=== PATIENT | male | born 1960 | race Caucasian/White ===

== ENCOUNTER 2018-09-18 16:53 | Emergency (ER) | payer OTHER ==
[~2018-09-18] VITALS: Ht 177.8 cm; Wt 93.8 kg
[~2018-09-18 16:53] MED LIST: ADVIL200 MG PO; AIRBORNE EFFER1 EACH PO; COLCRYS0.6 MG PO; MONTELUKAST SOD10 MG PO; VENTOLIN HFA18 GM INH; ZESTORETIC 20-1 EAC1 PO
[2018-09-18] MEDS ORDERED: ENOXAPARIN40 MG/0.4 SUB-Q (17:14)
[2018-09-18] MEDS ORDERED: OXYCODONE HCL5 MG PO (17:14)
== END 2018-09-18 19:46 | disposition home or self-care (01) ==
LOC: ED 16:53
DX: R10.9 Unspecified abdominal pain (principal); Z85.038 Personal history of other malignant neoplasm of large intestine; Z79.899 Other long term (current) drug therapy
CPT/HCPCS: 74177; 80053; 81001; 83605; 85025; 96374; 96375; 96376; 99284-25; J1170; J2405; J7030; Q9967

== ENCOUNTER 2019-05-05 01:01 | Observation (INO) | payer OTHER ==
[~2019-05-05] VITALS: Ht 177.8 cm; Wt 95.8 kg
[~2019-05-05 01:01] MED LIST changes: +ENOXAPARIN40 MG/0.4 SUB-Q; +OXYCODONE HCL5 MG PO
--- OUTSIDE RECORDS SUMMARY | 2019-05-05 01:04 | XMS ---
PreManage Notification: MCKENZIE CARRILLO Security Garage Worker Events No recent Security Events currently on file [facility] There are no care providers on record at this time. Christina has no Care Guidelines for this patient. Mirtha VISIT COUNT (12 MO.) 2 ANNA Rushing TOTAL 2 NOTE: Visits indicate total known visits. ED/UCC VISIT TRACKING (12 MO.) 05/05/2019 01:01 [facility] [place] TYPE: Emergency COMPLAINT: - SOB 09/18/2018 16:53 [facility]NA [facility] [place] TYPE: Emergency COMPLAINT: - ABD PAIN,POST OP DIAGNOSES: - Unspecified abdominal pain - Other [place] [facility] drug therapy - Personal history of other malignant neoplasm of large intestine 07/04/2018 10:24 [facility] [place] TYPE: Urgent Care DIAGNOSES: - Gout Pain - Idiopathic gout, left ankle and foot INPATIENT VISIT TRACKING (12 MO.) 09/01/2018 09:58 [facility] [place] TYPE: Surgical Services DIAGNOSES: - Benign neoplasm of transverse colon [email or web address]
[2019-05-05] MEDS ORDERED: VENTOLIN HFA18 GM INH (01:14)
[2019-05-05] MEDS ORDERED: ALBUTEROL2.5 MG/3 M INH ×2 (10:54→11:11)
== END 2019-05-05 11:55 | disposition home or self-care (01) ==
LOC: ED 01:01 → CCU 01:02
PROVIDERS: ADMIT Internal Medicine
DX: J45.31 Mild persistent asthma with (acute) exacerbation (principal); I10 Essential (primary) hypertension; Z85.038 Personal history of other malignant neoplasm of large intestine; Z79.899 Other long term (current) drug therapy
CPT/HCPCS: 71045; 80053; 83735; 83880; 85025; 94640; 94644; 94660; 96374; 96376; 99285-25; G0378; J2920; J2930; J3301

== ENCOUNTER 2019-08-05 08:28 | Day surgery (SDC) | payer OTHER ==
[~2019-08-05] VITALS: Ht 177.8 cm; Wt 97.5 kg
[~2019-08-05 08:28] MED LIST changes: +ALBUTEROL2.5 MG/3 M INH
[2019-08-05] MEDS ORDERED: CETIRIZINE HCL10 MG PO (08:51)
--- NOTE | 2019-08-05 10:14 | NUR ---
08/05/19 1014 Ryan,Nina 1000 PT ARRIVED TO PACU RESP EVEN AND UNLABORED. PT DENIES PAIN AND NAUSEA. PT WAKES TO VERBAL STIMULI AND TALKING TO RN. 1005 MD AT BEDSIDE TALKNIG TO PT.
--- NOTE | 2019-08-05 10:38 | OR ---
[facility] [address] [place], [place] [address] Signed DATE OF OPERATION: 08/05/2019 SURGEON: Siobhan Muñiz MD PREOPERATIVE DIAGNOSES: 1. Stage II colon cancer diagnosed in May 2018. 2. Laparoscopic extended right colectomy in August 2018. 3. A brother with colonic polyps in his 50s. POSTOPERATIVE DIAGNOSES: 1. Ileo-transverse colon anastomosis at 95 cm. 2. Minimal internal anal skin tag x1. 3. Minimal internal anal hemorrhoids. PROCEDURE: Colonoscopy without biopsy. ESTIMATED BLOOD LOSS: None. INDICATIONS: Mckenzie is a 59-year-old gentleman, who came in May 2018. We diagnosed him with a colon cancer just to the left of the midline in his transverse colon. He and his family had gone down to [place] to have his extended laparoscopic right colectomy. He has a gtry-zl-mcdi stapled anastomosis. He said it was stage II and he did not require any chemotherapy. He comes back now for a followup colonoscopy. He said in the meantime he is doing great. He is back to work and having good bowel movements. He did remind me that his brother had colonic polyps removed in his 50s. I gave Mckenzie a pamphlet on colonoscopy. Of course, he remembers that quite well. He recalls our bowel prep in detail. He remembers the need for IV conscious sedation. He had expressed understanding and wished to proceed. PROCEDURE NOTE: Mckenzie was taken into our endoscopy suite and placed in the left lateral decubitus position. He was given IV sedation with 7 mg of Versed and 125 mcg of fentanyl. A digital rectal exam was performed and this was unremarkable. He had no external hemorrhoids and good sphincter tone. However, his prostate is mildly enlarged. It is indurated and a little prominent on both sides. The adult colonoscope was then introduced and advanced under direct visualization up to the mid transverse colon where we encountered his hzwb-os-dnrt stapled anastomosis at 95 cm. We made several attempts Electronically Signed By: SIOBHAN MUÑIZ MD 08/05/19 1038 PATIENT NAME: MCKENZIE CARRILLO OPERATIVE REPORT DATE OF : 64 REPORT #: [id number] PHYSICIAN: SIOBHAN MUÑIZ MD PCP: ALMA ROSA VO PA-C REPORT IS CONFIDENTIAL AND NOT TO BE RELEASED WITHOUT AUTHORIZATION [facility] [address] [place], [place] [address] Signed to turn the camera up into the small bowel just a short distance and that was unsuccessful. We went ahead and withdrew the scope slowly. The anastomosis had healed very nicely. There were no ulcerations or granulation tissue. No evidence of any recurrent cancer. The scope was slowly withdrawn through the colon and he has no pathology throughout that remaining colon whatsoever. The rectum was unremarkable. Upon retroflexion of scope, he has just a single tiny internal anal skin tag and what looked like one small internal hemorrhoid column. After this, the gas was suctioned out. The colonoscope removed. Mckenzie tolerated his procedure quite well. RECOMMENDATIONS: Mckenzie can follow up my office in 3 years for repeat colonoscopy. Siobhan Muñiz MD ALB/MODL /[id number] cc: MD Brenda Rock PA-C Andrew L Bower, MD Copies: CAIN KHAN MD, CHLOE K PA-C BOWER, ANDREW L MD ~ Electronically Signed By: SIOBHAN MUÑIZ MD 08/05/19 1038 PATIENT NAME: MCKENZIE CARRILLO OPERATIVE REPORT DATE OF : 64 REPORT #: [id number] PHYSICIAN: SIOBHAN MUÑIZ MD PCP: ALMA ROSA VO PA-C REPORT IS CONFIDENTIAL AND NOT TO BE RELEASED WITHOUT AUTHORIZATION
== END 2019-08-05 10:38 | disposition home or self-care (01) ==
LOC: OPS 08:28 → DS 09:45 → OPS 10:38
PROVIDERS: Colon & Rectal Surgery
PROC: 0DJD8ZZ Inspection of Lower Intestinal Tract, Via Natural or Artificial Opening Endoscopic (ICD-10-PCS; principal; 2019-08-05 09:45)
DX: Z08 Encounter for follow-up examination after completed treatment for malignant neoplasm (principal); Z85.038 Personal history of other malignant neoplasm of large intestine; K64.8 Other hemorrhoids; K64.4 Residual hemorrhoidal skin tags; N40.0 Benign prostatic hyperplasia without lower urinary tract symptoms; I10 Essential (primary) hypertension; Z98.0 Intestinal bypass and anastomosis status; Z90.49 Acquired absence of other specified parts of digestive tract; Z83.71 Family history of colonic polyps; F17.220 Nicotine dependence, chewing tobacco, uncomplicated; J45.909 Unspecified asthma, uncomplicated; Z98.890 Other specified postprocedural states; Z79.899 Other long term (current) drug therapy
CPT/HCPCS: 99153; G0500; J2250; J3010; J7121

== ENCOUNTER 2021-06-08 06:00 | Day surgery (SDC) | payer OTHER ==
[~2021-06-08] VITALS: Ht 177.8 cm; Wt 98.2 kg
--- NOTE | ~2021-06-08 | OR ---
[facility] [address] [place], [place] [address] Draft DATE OF OPERATION: 06/08/2021 SURGEON: Hal Petersen MD PREOPERATIVE DIAGNOSIS: Rotator cuff tear, right shoulder. POSTOPERATIVE PROCEDURE: Rotator cuff tear, right shoulder. PROCEDURE PERFORMED: Right shoulder arthroscopy with rotator cuff repair. GLUER MACHINE OPERATOR: None. ANESTHESIA: General. BLOOD LOSS: None. IMPLANTS: One 4.75 SwiveLock with FiberTape. BRIEF HISTORY: Mckenzie is a 61-year-old gentleman with pain and weakness in the shoulder. MRI was consistent with a tear of the anterior supraspinatus. There was partial tear and some fraying of the labrum as well. Risks and benefits of operative treatment were discussed with him and he elected to proceed. DESCRIPTION OF PROCEDURE: Once consent was obtained, he was taken to the operating room. After adequate anesthesia, he was placed in a beach chair position. All downside pressure points were well padded. The right shoulder was prepped and draped in a standard sterile fashion. The shoulder was injected with 15 mL of 0.25% Marcaine with epinephrine as was the subacromial space. Standard posterior portal was established and the scope was introduced in the shoulder. ARTHROSCOPIC FINDINGS: PATIENT NAME: MCKENZIE CARRILLO OPERATIVE REPORT DATE OF : 64 REPORT #: [id number] PHYSICIAN: HAL PETERSEN MD PCP: ALMA ROSA VO PA-C REPORT IS CONFIDENTIAL AND NOT TO BE RELEASED WITHOUT AUTHORIZATION [facility] [address] [place], [place] [address] Draft There was grade 2 to grade 3 chondromalacia of the humerus, grade 2 of the glenoid. There was fraying of the glenoid labrum, but no detachment. The biceps and biceps anchor were intact. There was a small full-thickness tear of the rotator cuff just posterior to the biceps, measuring approximately the 8 or 9 mm. There was some partial tearing posteriorly in the infraspinatus. Subacromial space showed minimal bursitis with full-thickness tear noted at the point marked with a spinal needle. DESCRIPTION OF OPERATION: Diagnostic arthroscopy was undertaken as noted above. Standard anterior portal was made using an outside-in technique. The labrum was debrided and cleaned up and smoothed. The rotator cuff tear was then debrided using the shaver and marked with a spinal needle. The scope was withdrawn and placed in the subacromial space. The subacromial bursa was cleaned up a little bit to allow better visualization. We then debrided the edge of the rotator cuff tear with the small biter and shaver down to the tuberosity. The tuberosity was cleaned off and using a small punch. Once this was accomplished, a FiberTape suture was placed in inverted mattress configuration in the rotator cuff tear. Then, utilizing a 475 anchor in the tuberosity, we were able to pull the rotator cuff down to its natural position and anchored with the anchor. There was excellent bleeding and fat extrusion through the anchor. The suture ends were cut. The shoulder was removed and the rotator cuff repair was stable. The scope was withdrawn. Portals were closed with 3-0 nylon and dressed with Allevyn and OpSite. He tolerated the procedure well. All sponge, needle, and instrument counts were correct. Hal Petersen MD BA/LORRIE /[id number] Copies: ~ PATIENT NAME: MCKENZIE CARRILLO OPERATIVE REPORT DATE OF : 64 REPORT #: [id number] PHYSICIAN: HAL PETERSEN MD PCP: ALMA ROSA VO PA-C REPORT IS CONFIDENTIAL AND NOT TO BE RELEASED WITHOUT AUTHORIZATION
[~2021-06-08 06:00] MED LIST changes: +CETIRIZINE HCL10 MG PO; +HYDROXYCHLOROQ200 MG PO; +KENALOG-4040 MG/1 ML; +PREDNISONE10 MG PO; +PROVENTIL HFA6.7 GM INH
[2021-06-08] MEDS ORDERED: HYDROCODON-ACE1 EA10 PO (07:57)
[2021-06-08] MEDS ORDERED: CELECOXIB200 MG PO (07:57)
--- NOTE | 2021-06-08 08:03 | NUR ---
06/08/21 0803 Lary Brown 0757- PT ARRIVES TO PACU AROUSABLE TO STIMULI. PT VERY DROWSY AND FALLS RIGHT BACK TO SLEEP WHEN NOT BEING STIMULATED. RESP EVEN AND UNLABORED. OXYGEN SAT HIGH 90'S ON 6L VIA MASK. 0801- PT UPDATED THAT HE IS IN THE RECOVERY ROOM AND SURGERY IS DONE. PT STATES, "REALLY?". PT DENIES ANY PAIN OR NAUSEA. FALLS BACK TO SLEEP.
--- NOTE | 2021-06-08 10:16 | NUR ---
STEADY ON FEET WITH ONE PERSON STAND BY ASSIST. HELPED PT WITH DRESSING AND REAPPLIED SLING TO OPERATIVE ARM. DRILL SETUP OPERATOR AWARE OF SWELLING AT BLOCK SITE. FURTHER EXAM SHOWS FULLNESS TO BOTH SIDES OF NECK AND LEFT JAW. ENCOURAGED PT TO SCHEDULE FOLLOW UP APPOINTMENT WITH PCP FOR EVALUATION OF SUPRACLAVICULAR LYMPHNODES AND THYROID.
== END 2021-06-08 10:10 | disposition home or self-care (01) ==
LOC: DS 06:00
PROVIDERS: ATTEND Specialist
PROC: 0LQ14ZZ Repair Right Shoulder Tendon, Percutaneous Endoscopic Approach (ICD-10-PCS; principal; 2021-06-08 06:45)
DX: M75.111 Incomplete rotator cuff tear or rupture of right shoulder, not specified as traumatic (principal); I10 Essential (primary) hypertension; J45.909 Unspecified asthma, uncomplicated
CPT/HCPCS: J0690; J1100; J1885; J2001; J2250; J2405; J2704; J2795; J7121

== ENCOUNTER 2023-05-26 13:36 | Inpatient (IN) | payer OTHER ==
[~2023-05-26] VITALS: Ht 177.8 cm; Wt 90.4 kg
--- OUTSIDE RECORDS SUMMARY | ~2023-05-26 | XMS | Continuity of Care Document ---
Demographics + + + | Address | [address] | | | [place] [address] | + + + | Preferred Language | Unknown | + + + | Marital Status | | + + + | Judaism Affiliation | Unknown | + + + | Race | White | + + + | Ethnic Group | Unknown | + + + Author + + + | Author | [facility] | + + + | Organization | [facility] | + + + | Address | [address] | | | [place] [address] | + + + | Phone | | + + + Care Team Providers + + + + | Care Weatherization And Housing Inspector Name | Role | Phone | + [...] + + + | 2023-05-02 14:19 | SUPERVISOR SHED WORKERS (CURRENT) USE OF | [facility] | | | SYSTEMIC STER | | + + + + | 2023-05-02 14:30 | SUPERVISOR SHED WORKERS (CURRENT) USE OF | [facility] | | | SYSTEMIC STER | | + + + + Procedures No information. Results/Labs No information. Social History +--------+ + + | date | description | facility | +--------+ + + Vital Signs No information."
[~2023-05-26 13:36] MED LIST changes: +CELECOXIB200 MG PO; +HYDROCODON-ACE1 EA10 PO
[2023-05-26] MEDS ORDERED: PREDNISONE5 MG PO (15:13)
[2023-05-26] MEDS ORDERED: ADVAIR 250-501 EACH INH (15:13)
[2023-05-26] MEDS ORDERED: FEBUXOSTAT40 MG PO (15:14)
[2023-05-26] MEDS ORDERED: PROBENECID500 MG PO (15:15)
[2023-05-26 16:11] LABS: INFLUENZA B NAA NEGATIVE (NEGATIVE); RESPIRATORY SYNCYTIAL VIR NAA NEGATIVE (NEGATIVE)
[2023-05-26 17:06] LABS: HEMATOCRIT 34.6 % (35.0-50.0); HEMOGLOBIN 11.4 g/dL (12.0-18.0); MCHC 33.1 g/dl (30-36); MCV 93.6 fl (81-99); PLATELET COUNT 438 K/uL (140-440); RDW 12.6 (10.5-15.0)
[2023-05-26 17:14] LABS: ANION GAP 16.5 (7-21); BUN/CREATININE RATIO 12.38 (6.0-28.6); CALCIUM 9.1 mg/dL (8.5-10.1); CREATININE, SERUM 3.23 mg/dL (0.70-1.30); POTASSIUM 3.5 mmol/L (3.5-5.1)
[2023-05-26 17:20] LABS: BANDS, MANUAL DIFF 4; BASOPHILS, MANUAL DIFF 1; EOSINOPHILS, MANUAL DIFF 1; LYMPHOCYTES, MANUAL DIFF 9; MONOCYTES, MANUAL DIFF 5; NEUTROPHILS, MANUAL DIFF 80
[2023-05-26 18:23] LABS: LACTIC ACID, BLOOD 1.3 mmol/L (0.4-2.0)
[2023-05-26 21:09] VITALS: BP 128/74
[2023-05-26 21:33] LABS: BILIRUBIN, URINE NEGATIVE (negative); BLOOD/HGB, URINE NEGATIVE (Negative); KETONE, URINE NEGATIVE (Negative); LEUK ESTERASE, URINE NEGATIVE (negative); NITRITE, URINE NEGATIVE (negative)
[2023-05-26] MEDS ORDERED: CYCLOBENZAPRINE10 MG PO (21:57)
[2023-05-26 23:42] LABS: BUN/CREATININE RATIO 14.28 (6.0-28.6); CALCIUM 8.3 mg/dL (8.5-10.1); CREATININE, SERUM 2.59 mg/dL (0.70-1.30)
[2023-05-27 00:33] VITALS: BP 122/63
[2023-05-27 05:07] VITALS: BP 123/73
[2023-05-27 05:44] LABS: HEMOGLOBIN 10.3 g/dL (12.0-18.0); MCHC 34.5 g/dl (30-36)
[2023-05-27 05:48] LABS: HEMATOCRIT 29.8 % (35.0-50.0); MCH 31.9 (27-36); MCV 92.4 fl (81-99); PLATELET COUNT 407 K/uL (140-440); RBC 3.22 M/ul (4.3-5.7); RDW 12.6 (10.5-15.0)
[2023-05-27 06:01] LABS: ALBUMIN 2.3 g/dL (3.4-5.0); ALBUMIN/GLOBULIN RATIO 0.55 (1.1-2.4); ANION GAP 15.6 (7-21); BANDS, MANUAL DIFF 14; BILIRUBIN, TOTAL 0.2 ng/dL (0.2-1.0); BUN/CREATININE RATIO 17.15 (6.0-28.6); CALCIUM 8.4 mg/dL (8.5-10.1); CREATININE, SERUM 2.04 mg/dL (0.70-1.30); EOSINOPHILS, MANUAL DIFF 2; LYMPHOCYTES, MANUAL DIFF 18; MAGNESIUM 1.4 mg/dL (1.8-2.4); MONOCYTES, MANUAL DIFF 5; NEUTROPHILS, MANUAL DIFF 61; PHOSPHORUS, INORGANIC 4.1 mg/dL (2.5-4.9); POTASSIUM 3.6 mmol/L (3.5-5.1); PROTEIN, TOTAL 6.5 g/dL (6.4-8.2)
[2023-05-27 09:19] VITALS: BP 117/67
[2023-05-27] MEDS ORDERED: FEBUXOSTAT80 MG PO (09:22)
[2023-05-27] MEDS ORDERED: CALCITONIN-SAL3.7 ML NAS (09:24)
[2023-05-27] MEDS ORDERED: CYCLOBENZAPRINE5 MG PO (09:24)
[2023-05-27] MEDS ORDERED: IBUPROFEN800 MG PO (09:25)
[2023-05-27] MEDS ORDERED: HYDROCODON-ACE1 EA10 PO (12:27)
[2023-05-27] MEDS ORDERED: VITAMIN B COMP1 EAC1 PO (12:28)
[2023-05-27] MEDS ORDERED: VITAMIN D325 MCG PO (12:28)
[2023-05-27] MEDS ORDERED: MULTI VITAMIN1 EACH PO (12:28)
[2023-05-27] MEDS ORDERED: AIRBORNE CHEWA1 EACH PO (12:28)
[2023-05-27] MEDS ORDERED: VITAMIN C500 M1 PO (12:29)
[2023-05-27 13:21] LABS: ANION GAP 14.6 (7-21); BUN/CREATININE RATIO 21.27 (6.0-28.6); CALCIUM 9.1 mg/dL (8.5-10.1); CREATININE, SERUM 1.41 mg/dL (0.70-1.30); POTASSIUM 3.6 mmol/L (3.5-5.1)
[2023-05-27 14:44] VITALS: BP 116/70
[2023-05-27 18:25] VITALS: BP 125/82
[2023-05-27 20:16] VITALS: BP 123/77
[2023-05-28 06:29] VITALS: BP 133/67
[2023-05-28 06:36] LABS: HEMATOCRIT 31.8 % (35.0-50.0); HEMOGLOBIN 10.7 g/dL (12.0-18.0); MCH 31.4 (27-36); MCHC 33.7 g/dl (30-36); MCV 93.3 fl (81-99); PLATELET COUNT 427 K/uL (140-440); RDW 12.8 (10.5-15.0)
[2023-05-28 06:53] LABS: ALBUMIN 2.3 g/dL (3.4-5.0); ALBUMIN/GLOBULIN RATIO 0.52 (1.1-2.4); ANION GAP 15.8 (7-21); BILIRUBIN, TOTAL 0.3 ng/dL (0.2-1.0); BUN/CREATININE RATIO 16.81 (6.0-28.6); CALCIUM 9.2 mg/dL (8.5-10.1); CREATININE, SERUM 1.13 mg/dL (0.70-1.30); POTASSIUM 3.8 mmol/L (3.5-5.1); PROTEIN, TOTAL 6.7 g/dL (6.4-8.2)
[2023-05-28 06:59] LABS: BANDS, MANUAL DIFF 2; BASOPHILS, MANUAL DIFF 2; LYMPHOCYTES, MANUAL DIFF 27; MONOCYTES, MANUAL DIFF 7; NEUTROPHILS, MANUAL DIFF 62
[2023-05-28 07:00] LABS: EOSINOPHILS, MANUAL DIFF 0
--- OUTSIDE RECORDS SUMMARY | 2023-05-28 09:11 | XMS | Continuity of Care Document ---
Demographics + + + | Address | [address] | | | [place] [address] | + + + | Preferred Language | Unknown | + + + | Marital Status | | + + + | Cheondoism Affiliation | Unknown | + + + | Race | White | + + + | Ethnic Group | Unknown | + + + Author + + + | Author | [facility] | + + + | Organization | [facility] | + + + | Address | [address] | | | [place] [address] | + + + | Phone | | + + + Care Team Providers + + + + | Care Marketing Assistant Retail Division Name | Role | Phone | + + + + Unavailable | Unavailable | + + + + Allergies No information. Encounters No information. Functional Status No information. Immunizations No information. Medications No information. Problems + + + + | date | description | facility | + + + + | 2023-03-11 11:05 | MULTIPLE FRACTURES OF | [facility] | | | RIBS, RIGHT SIDE, INIT FOR | | | | C | | + + + + | 2023-03-11 11:05 | SPRAIN OF RIBS, INITIAL | [facility] | | | ENCOUNTER | | + + + + | 2023-03-11 11:05 | SPRAIN OF CHONDROSTERNAL | [facility] | | | JOINT, INITIAL ENCOUNTER | | + + + + | 2023-03-11 11:05 | SPRAIN OF CHONDROSTERNAL | [facility] | | | JOINT, INITIAL | | + + + + | 2023-03-11 11:05 | SPRAIN OF UNSPECIFIED | [facility] | | | PARTS OF THORAX, I | | + + + + | 2023-03-14 06:00 | OTHER SPONDYLOSIS WITH | [facility] | | | RADICULOPATHY, JODI | | + + + + | 2023-03-25 10:32 | OTHER SPONDYLOSIS WITH | [facility] | | | RADICULOPATHY, JODI | | + + + + | 2023-03-25 10:32 | OTHER SPONDYLOSIS WITH | [facility] | | | RADICULOPATHY, LUMBOSACRAL | | | | REGION | | + + + + | 2023-03-25 10:32 | 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, LUMBA | | + + + + | 2023-03-25 10:32 | SPINAL STENOSIS, THORACIC | [facility] | | | REGION | | + + + + | 2023-03-25 10:32 | SPINAL STENOSIS, LUMBAR | [facility] | | | REGION WITHOUT NEUROGENIC | | + + + + | 2023-03-25 10:32 | SPINAL STENOSIS, | [facility] | | | LUMBOSACRAL REGION | | + + + + | 2023-03-25 10:32 | COLLAPSED VERTEBRA, NEC, | [facility] | | | THORACOLUMBAR REGION, INI | | + + + + | 2023-03-25 10:32 | INTVRT DISC DISORDERS W | [facility] | | | RADICULOPATHY, LUMBOSACRAL | | + + + + | 2023-03-25 10:32 | OTHER INTERVERTEBRAL DISC | [facility] | | | DISORDERS, LUMBOSACRAL R | | + + + + | 2023-03-25 11:00 | OTHER SPONDYLOSIS WITH | [facility] | | | RADICULOPATHY, JODI | | + + + + | 2023-05-02 14:19 | OTH DISRD OF BONE DENSITY | [facility] | | | AND STRUCTURE, LEFT THIG | | + + + + | 2023-05-02 14:19 | OTH DISRD OF BONE DENSITY | [facility] | | | AND STRUCTURE, OTHER SIT | | + + + + | 2023-05-02 14:19 | ENCOUNTER FOR THERAPEUTIC | [facility] | | | DRUG LEVEL MONITORING | | + + + + | 2023-05-02 14:19 | WARP DRAWER (CURRENT) USE OF | [facility] | | | SYSTEMIC STER | | + + + + | 2023-05-02 14:30 | WARP DRAWER (CURRENT) USE OF | [facility] | | | SYSTEMIC STER | | + + + + Procedures No information. Results/Labs No information. Social History +--------+ + + | date | description | facility | +--------+ + + Vital Signs No information."
[2023-05-28 09:31] VITALS: BP 135/79
[2023-05-28] MEDS ORDERED: CEFPODOXIME PR200 MG PO (11:00)
[2023-05-28] MEDS ORDERED: AZITHROMYCIN250 MG PO (11:00)
[2023-05-28 12:06] VITALS: BP 122/85
== END 2023-05-28 12:50 | disposition home or self-care (01) | DRG 177 ==
LOC: ED 13:36 → MS 19:11
PROVIDERS: Emergency Medicine; ADMIT Family Medicine; ATTEND Family Medicine
PROC: 8E0ZXY6 Isolation (ICD-10-PCS; principal; 2023-05-26)
DX: U07.1 COVID-19 (principal); J15.9 Unspecified bacterial pneumonia; N17.9 Acute kidney failure, unspecified; E87.1 Hypo-osmolality and hyponatremia; E83.42 Hypomagnesemia; E86.0 Dehydration; J45.909 Unspecified asthma, uncomplicated; Z85.038 Personal history of other malignant neoplasm of large intestine; Z90.49 Acquired absence of other specified parts of digestive tract; Z91.048 Other nonmedicinal substance allergy status; Z79.891 Long term (current) use of opiate analgesic; Z79.51 Long term (current) use of inhaled steroids; Z79.899 Other long term (current) drug therapy
CPT/HCPCS: 36415; 71045; 80048; 80053; 81003; 83605; 83735; 84100; 85025; 87502; 94640; 94760; 96360; 96361; 97161; 97165; 99285-25; A9270; C9803; J0456; J0696; J1650; J3475; J3480; J7030; J7060; J7121; J7512; U0002

== ENCOUNTER 2023-08-13 05:30 | Day surgery (SDC) | payer OTHER ==
[2023-06-11 16:16] VITALS: BP 120/74
[2023-08-07 09:27] VITALS: BP 120/74
[~2023-08-13] VITALS: Ht 177.8 cm; Wt 99.1 kg
[~2023-08-13 05:30] MED LIST changes: +ADVAIR 250-501 EACH INH; +AIRBORNE CHEWA1 EACH PO; +AZITHROMYCIN250 MG PO; +CALCITONIN-SAL3.7 ML NAS; +CEFPODOXIME PR200 MG PO; +CELEBREX200 MG PO; +CYCLOBENZAPRINE10 MG PO; +CYCLOBENZAPRINE5 MG PO; +FEBUXOSTAT40 MG PO; +FEBUXOSTAT80 MG PO; +IBUPROFEN800 MG PO; +LISINOPRIL-HCT1 EAC1 PO; +MULTI VITAMIN1 EACH PO; +PREDNISONE5 MG PO; +PROBENECID500 MG PO; +VITAMIN B COMP1 EAC1 PO; +VITAMIN C500 M1 PO; +VITAMIN D325 MCG PO
[2023-08-13 06:12] VITALS: BP 150/88
--- NOTE | 2023-08-13 08:07 | NUR ---
08/13/23 0807 Do Petersen PT TO PACU ALERT AND AWAKE, CONVERSING WITH STAFF.
[2023-08-13 08:26] VITALS: BP 111/94
--- NOTE | 2023-08-14 12:57 | OR ---
[facility] [address] [place], [place] [address] Signed DATE OF OPERATION: 08/13/2023 SURGEON: Siobhan Muñiz MD PREOPERATIVE DIAGNOSES: 1. Personal history of stage II transverse colon cancer in 2018 at age 57. 2. Takedown of splenic flexure and extended right colectomy with a zkpg-gd-vjoi stapled anastomosis at 95 cm in 2018 at age 57. 3. Internal and external hemorrhoids with associated skin tags. 4. Brother with colonic polyps in his 50s. POSTOPERATIVE DIAGNOSES: 1. Cpsn-md-pvfj stapled ileocolonic anastomosis at 95 cm. 2. 3 mm and 5 mm sessile polyps at 18 cm in rectum. 3. 4 mm polyp at 5 cm in rectum. 4. 3 mm polyp at 32 cm in sigmoid colon. PROCEDURE: Colonoscopy with hot biopsy. ESTIMATED BLOOD LOSS: None. INDICATIONS: Mckenzie is a 63-year-old gentleman, who I 1st met back in 2018 at the age of 57. We found that he had a colon cancer in his mid to distal transverse colon. He underwent takedown of splenic flexure with an extended right colectomy that same year with Dr. Cain Khan. He had a stapled tzsb-pc-muzp anastomosis at 95 cm. He is known to have internal and external hemorrhoids associated with skin tags. We know his brother had colonic polyps removed in his 50s. 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 His back is quite miserable and he wears a special brace. He told me he cannot stay at home and not work, it is too boring. He has to take hydrocodone daily to function. Consequently, we asked for monitored anesthesia care on this occasion. He never required any chemoradiation because it was a stage II cancer. He comes now for his followup colonoscopy. He has had really no lower GI complaints. In the office, I gave him a pamphlet on colonoscopy. He recalls the nature of the test. There is risk including, but not limited to gas bloating, crampy abdominal pain, bleeding, perforation requiring surgery and missed diagnosis. He also understands the need to have an adult person take him home afterwards. He had expressed understanding and wished to proceed. Electronically Signed By: SIOBHAN MUÑIZ MD 08/13/23 1043 Electronically Signed By: SIOBHAN MUÑIZ MD 08/19/23 0725 PATIENT NAME: MCKENZIE CARRILLO OPERATIVE REPORT DATE OF : 64 REPORT #: [id number] PHYSICIAN: SIOBHAN MUÑIZ MD PCP: RITIKA BAUTISTA PA-C REPORT IS CONFIDENTIAL AND NOT TO BE RELEASED WITHOUT AUTHORIZATION [facility] [address] [place], [place] [address] Signed DESCRIPTION OF PROCEDURE: Mckenzie was taken into our endoscopy suite and we had to give him a little propofol before we could move him in the left lateral decubitus position from all the pain in his shoulder and his back. Once he was fully sedated, a digital rectal exam was performed. He has minimal to moderate circumferential external hemorrhoids. He had good sphincter tone. There were no masses. We did not specifically check his prostate today. The adult colonoscope was introduced and advanced all around into the transverse colon without difficulty. His anastomosis is at 95 cm. It is very well healed. There is no recurrent cancer. No donna exposed. There are no ulcerations. His prep was quite excellent. The scope was then slowly withdrawn. We removed the above mentioned polyps with the help of hot biopsy forceps. There were no diverticula. We retroflexed the scope in the rectum and he does have minimal to moderate internal hemorrhoid columns with several small associated skin tags. After this, the gas was suctioned out and the colonoscope removed. Mckenzie tolerated his procedure quite well. RECOMMENDATIONS: I will see Mckenzie back in my office in 7 to 14 days to review his results. Based on the pathology results, he will probably be on the three or five year plan. Siobhan Muñiz MD ALB/MODL /[id number] cc: MD Siobhan Rock MD Chloe K Norris, PA-C Copies: CAIN KHAN MD,SIOBHAN Cadet MD Electronically Signed By: SIOBHAN MUÑIZ MD 08/13/23 1043 Electronically Signed By: SIOBHAN MUÑIZ MD 08/19/23 0725 PATIENT NAME: MCKENZIE CARRILLO OPERATIVE REPORT DATE OF : 64 REPORT #: [id number] PHYSICIAN: SIOBHAN MUÑIZ MD PCP: RITIKA BAUTISTA PA-C REPORT IS CONFIDENTIAL AND NOT TO BE RELEASED WITHOUT AUTHORIZATION [address] [address] Signed RITIKA BAUTISTA PA-C ~ Electronically Signed By: SIOBHAN MUÑIZ MD 08/13/23 1043 Electronically Signed By: SIOBHAN MUÑIZ MD 08/19/23 0725 PATIENT NAME: MCKENZIE CARRILLO CAIN OPERATIVE REPORT DATE OF : 64 REPORT #: [id number] PHYSICIAN: SIOBHAN MUÑIZ MD PCP: RITIKA BAUTISTA PA-C REPORT IS CONFIDENTIAL AND NOT TO BE RELEASED WITHOUT AUTHORIZATION
--- NOTE | 2023-08-15 12:55 | PATH ---
[facility] [address] [place], [place] [address] Signed SPECIMEN(S): A RECTAL POLYP AT 18 CM SPECIMEN(S): B RECTAL POLYP AT 5 CM SPECIMEN(S): C SIGMOID POLYP AT 32 CM SPECIMEN SOURCE: A. RECTAL POLYP AT 18 CM B. RECTAL POLYP AT 5 CM C. SIGMOID POLYP AT 32 CM CLINICAL HISTORY: Follow-up colonoscopy for history of colon cancer FINAL PATHOLOGIC DIAGNOSIS: A. Rectal polyp at 18 cm, polypectomy: - Fragments of hyperplastic polyp. B. Rectal polyp at 5 cm, polypectomy: - Fragments of hyperplastic polyp. C. Sigmoid polyp at 32 cm, polypectomy: - Fragments of hyperplastic polyp. DDF MICROSCOPIC EXAMINATION: Histologic sections of all submitted blocks are examined by light microscopy. These findings, together with the gross examination, support the pathologic diagnosis. GROSS DESCRIPTION: A. The specimen, labeled and designated "Leetch, R, " and designated on the requisition "colon, rectum polypectomy at 18 cm," is received in formalin and consists of three munoz soft tissue fragments measuring 0.3 to 0.4 cm, all specimens are submitted entirely in (A1). B. The specimen, labeled and designated "Leetch, R, " and designated on the requisition "colon, rectum polypectomy at 5 cm," is received in formalin and consists of one muonz soft tissue fragment measuring 0.4 x 0.2 x 0.2 cm, the specimen is submitted entirely in (B1). C. The specimen, labeled and designated "Leetch, R, " and designated on the requisition "colon, sigmoid polypectomy at 32 cm," is received in formalin and consists of one munoz soft tissue fragment measuring 0.4 x 0.3 x 0.3 cm, the specimen is submitted entirely in (C1). MMA (under the direct supervision of a pathologist) PATIENT NAME: MCKENZIE CARRILLO PATHOLOGY DATE OF : 64 REPORT #: [id number] PHYSICIAN: [facility] PATHOLOGY PCP: RITIKA BAUTISTA PA-C REPORT IS CONFIDENTIAL AND NOT TO BE RELEASED WITHOUT AUTHORIZATION [facility] [address] [place], [place] [address] Signed The Gross Description was prepared using a voice recognition system. The report was reviewed for accuracy; however, sound-alike word errors, addition and/or deletions may occur. If there is any question about this report, please contact Client Services. ADDITIONAL NOTES: Immunohistochemical and/or in situ hybridization studies if performed in this case included appropriate positive controls that reacted as expected. This test was developed and its performance characteristics determined by [facility]. It has not been cleared or approved by the U.S. Food and Drug Administration. The FDA has determined that such clearance or approval is not necessary. This test is used for clinical purposes. It should not be regarded as investigational or for research. [facility] is certified under the Clinical Laboratory Improvement Amendments of 1988 (CLIA) as qualified to perform high complexity clinical laboratory testing. PERFORMING LABORATORY: Technical component was performed by [facility], [address] [place] [id number] (CLIA# [id number]). Professional interpretation was performed by [facility], [address] [place] [id number] (CLIA#: [id number]). Diagnostician: Andre Faye DO Pathologist Electronically Signed 08/15/2023 Copies: ~ PATIENT NAME: MCKENZIE CARRILLO CAIN PATHOLOGY DATE OF : 64 REPORT #: [id number] PHYSICIAN: RENETTA TAYLOR PCP: RITIKA BAUTISTA PA-C REPORT IS CONFIDENTIAL AND NOT TO BE RELEASED WITHOUT AUTHORIZATION
== END 2023-08-13 08:45 | disposition home or self-care (01) ==
LOC: DS 05:30 → OPS 05:30
PROVIDERS: ATTEND Colon & Rectal Surgery
PROC: 0DBL8ZX Excision of Transverse Colon, Via Natural or Artificial Opening Endoscopic, Diagnostic (ICD-10-PCS; 2023-08-13)
PROC: 0DBN8ZX Excision of Sigmoid Colon, Via Natural or Artificial Opening Endoscopic, Diagnostic (ICD-10-PCS; 2023-08-13)
PROC: 0DBP8ZX Excision of Rectum, Via Natural or Artificial Opening Endoscopic, Diagnostic (ICD-10-PCS; principal; 2023-08-13 07:30)
DX: Z08 Encounter for follow-up examination after completed treatment for malignant neoplasm (principal); Z85.038 Personal history of other malignant neoplasm of large intestine; K63.5 Polyp of colon; I10 Essential (primary) hypertension; M35.3 Polymyalgia rheumatica; F17.220 Nicotine dependence, chewing tobacco, uncomplicated; Z83.719 Family history of colon polyps, unspecified; Z79.899 Other long term (current) drug therapy
CPT/HCPCS: 00811; J2001; J2704; J3010; J7121